=== PATIENT | female | born 1965 | race Caucasian/White ===

== ENCOUNTER → 2018-02-15 | Outpatient (CLI) | payer BC ==
--- NOTE | 2018-02-15 14:05 | XR ---
EXAMINATION TYPE: XR lumbar spine 2 or 3V DATE OF EXAM: 02/15/2018 CLINICAL HISTORY: Chronic back pain TECHNIQUE: Frontal an lateral images of the lumbar spine are obtained. COMPARISON: None. FINDINGS: There is a mild levoscoliotic curvature of the lumbar spine with apex at L3-L4 There are 5 lumbar type vertebral bodies identified. The lumbar spine shows satisfactory alignment without evide nce of acute fracture or dislocation. Vertebral body heights and disk space heights are within normal limits mild degenerative changes at L4-L5 and L5-S1 are seen as intervertebral disc space narrowing and facet arthropathy. The overlying soft tissue appears unremarkable. Cholecystectomy clips are pres ent in the right upper quadrant. IMPRESSION: No acute fracture or malalignment is seen in the lumbar spine. Mild degenerative changes of L4-L5 and L5-S1 and mild levoscoliosis of the lumbar spine.
--- NOTE | 2018-02-15 14:10 | XR ---
EXAMINATION TYPE: XR cervical spine limited DATE OF EXAM: 02/15/2018 TECHNIQUE: Frontal and lateral views of the cervical spine are obtained. HISTORY: [id number] lumbago,muscle strain COMPARISON: None FINDINGS: The cervical spine is visualized in its entirety from C1 thru the top of T1 level, it is s atisfactory in alignment without evidence of acute fracture. There is retrolisthesis of C5 on C6 with intervertebral disc space narrowing and opposing surface sclerosis as well as a small anterior osteo phyte. Mild uncovertebral hypertrophy is also seen at this level. The pre-vertebral soft tissue appea rs within normal limits. The C1-C2 articulation is within normal limits on the open mouth view. The oblique images are within normal limits. There is straightening of the usual cervical lordosis that may be on the basis of muscular sprain, spasm or patient positioning. IMPRESSION: No acute fracture in the cervical spine. Degenerative disc disease is focal at C5-C6 wit h retrolisthesis and uncovertebral hypertrophy. MR could evaluate for neural foraminal narrowing and spinal canal stenosis.
== END | disposition home or self-care (01) ==
LOC: RADXRYALE 10:54
PROVIDERS: ATTEND Family Medicine
DX: M47.816 Spondylosis without myelopathy or radiculopathy, lumbar region (principal); M41.9 Scoliosis, unspecified; M50.322 Other cervical disc degeneration at C5-C6 level; M43.12 Spondylolisthesis, cervical region; M99.71 Connective tissue and disc stenosis of intervertebral foramina of cervical region; M54.41 Lumbago with sciatica, right side; S46.811A Strain of other muscles, fascia and tendons at shoulder and upper arm level, right arm, initial encounter
CPT/HCPCS: 72040; 72100

== ENCOUNTER → 2018-07-19 | Outpatient (CLI) | payer BC ==
--- NOTE | 2018-07-20 11:53 | MM ---
Reason for exam: screening (asymptomatic). Last mammogram was performed 3 years and 4 months ago. Physical Findings: A clinical breast exam by your physician is recommended on an annual basis and results should be correlated with mammographic findings. MG 3D Screening Mammo W/Cad Bilateral CC and MLO view(s) were taken. Prior study comparison: March 24, 2015, bilateral MG 3d screening mammo w/cad. September 22, 2009, bilateral digital screening mammogram. The breast tissue is extremely dense which could obscure a lesion on mammography. No significant changes when compared with prior studies. ASSESSMENT: Benign, BI-RAD 2 RECOMMENDATION: Routine screening mammogram of both breasts in 1 year.
== END | disposition home or self-care (01) ==
LOC: RADMAMWWP 06:51
PROVIDERS: ATTEND Family Medicine
DX: Z12.31 Encounter for screening mammogram for malignant neoplasm of breast (principal)
CPT/HCPCS: 77063; 77067

== ENCOUNTER → 2019-04-05 | Day surgery (SDC) | payer BC ==
[2019-04-04 10:26] VITALS: BMI 26.2
[~2019-04-05] MED LIST: LACTATED RINGERS 1,000 ML IV SCH; LIDOCAINE 1% 20 ML VIAL (10MG/ML) FOR IV START INTRADERMA PRN; LIDOCAINE 1% INJ 10MG/ML (20 ML MDV) ONE; PROPOFOL 10 MG/ML 20 ML VIAL IV ONE
[2019-04-05 08:00] VITALS: RESP 16; TEMP 99.2
--- NOTE | 2019-04-05 09:12 | P.PCN ---
Date of Procedure: 04/05/19 Procedure(s) Performed: BRIEF HISTORY: Patient is a 54-year-old pleasant white female scheduled for an elective colonoscopy as a part of screening for colorectal neoplasia. She has family history of colon cancer diagnosed in maternal grandmother and paternal grandfather in the 50s and 90s respectively. PROCEDURE PERFORMED: Colonoscopy with snare polypectomy. PREOPERATIVE DIAGNOSIS: Screening for colon cancer. IV sedation per Anesthesia. PROCEDURE: After informed consent was obtained, the patient, was brought into the endoscopy unit. IV sedation was administered by Anesthesia under continuous monitoring. Digital rectal examination was normal. Initially the Olympus CF-160 flexible video colonoscope was then inserted in the rectum, gradually advanced into the cecum without any difficulty. Careful examination was performed as the scope was gradually being withdrawn. Ileocecal valve and the appendiceal orifice were visualized and appeared normal. Prep was excellent. Mucosa of the cecum, ascending colon, transverse colon, descending colon, sigmoid colon, and rectum appeared normal. The proximal rectum there was a 4-5 mm sessile polyp that was removed by snare polypectomy. The left sided diverticulosis seen. Retroflexion was performed in the rectum and no lesions were seen. The patient tolerated the procedure well. IMPRESSION: 4-5 mm sessile proximal rectal polyp status post polypectomy Scattered sigmoid diverticulosis RECOMMENDATIONS: Findings of this examination were discussed with the patient as well as her family. She was advised to follow with the biopsy and have a repeat colonoscopy in 5 years is a family history of colon cancer.
[2019-04-05 09:26] VITALS: BP 111/69; PULSE 50
== END ==
LOC: ORWHC2ENDO 07:45
PROVIDERS: ATTEND Internal Medicine Gastroenterology
DX: Z12.11 Encounter for screening for malignant neoplasm of colon (principal); K62.1 Rectal polyp; K57.30 Diverticulosis of large intestine without perforation or abscess without bleeding; Z80.0 Family history of malignant neoplasm of digestive organs; K21.9 Gastro-esophageal reflux disease without esophagitis; F41.9 Anxiety disorder, unspecified; Z72.0 Tobacco use; Z86.79 Personal history of other diseases of the circulatory system
CPT/HCPCS: 81025; 88305; 45385; J2001; J2704

== ENCOUNTER 2019-07-15 11:03 | Emergency (ER) | payer BC ==
[2019-07-15 11:19] VITALS: RESP 18; TEMP 98.1
[2019-07-15] MEDS ORDERED: CYCLOBENZAPRINE 10MG STARTER 3 TAB BTL PO STA (12:12)
[2019-07-15] MEDS ORDERED: CYCLOBENZAPRINE 10 MG TAB PO STA (12:12)
--- NOTE | 2019-07-15 12:20 | CT ---
EXAMINATION TYPE: CT brain grupo [facility] con DATE OF EXAM: 07/15/2019 COMPARISON: None HISTORY: 54-year-old female Head and neck pain CT DLP: 1282.7 mGycm Automated exposure control for dose reduction was used. Technique: Examination of the head was done in axial plane without intravenous contrast. Coronal and sagittal reconstructions performed. CT of the cervical spine was obtained in axial plane without intravenous injection of contrast mater ial. Coronal and sagittal reformatted images were obtained from the axial views for evaluation of f ractures, spinal alignment and canal. FINDINGS: Head: There is no evidence of acute intracranial hemorrhage, acute ischemic changes, mass, mass-effect, or extra-axial fluid collection. There is no effacement of cerebral sulci or basal subarachnoid cister ns. There is no hydrocephalus. There is no midline shift. Delgado-white matter distinction is preserv ed. Slight leftward nasal septal deviation. Paranasal sinuses and mastoid air cells well pneumatized. Orb its and globes are intact. Cervical spine: 4 mm subpleural pulmonary nodule peripheral right upper lobe. Mild emphysematous change. 6 month foll ow-up CT recommended to reassess this and certainly the remainder of the lungs. No craniocervical junction abnormality, predental space widening, or prevertebral soft tissue swellin g. Reversal of the normal cervical lordosis. No acute fracture of the cervical spine. There is grade 1 retrolisthesis at C5-C6 with moderate to advanced disc/endplate degenerative change at this level with disc height loss, endplate sclerosis, disc osteophyte complex that may cause up to a moderate spinal canal stenosis. Along with facet and uncovertebral joint arthropathy, there is moderate bilateral neuroforaminal sten osis, right greater left, at this level. Sagittal and coronal reformatted images confirm above findings. COMBINED IMPRESSION: 1. No acute intracranial abnormality seen. 2. No acute fracture of the cervical spine. Focal moderate to advanced spondylotic change at C5-C6 wi th grade 1 retrolisthesis here, at least moderate spinal canal stenosis, and moderate bilateral neuro foraminal stenosis here. 3. A 4 mm subpleural pulmonary nodule right upper lobe and some emphysematous change in the visualize d upper lungs. Six-month follow-up contrast enhanced CT chest recommended to reassess this and survey the remainder of the lungs.
--- NOTE | 2019-07-15 12:44 | ED ---
General Adult HPI - General Chief complaint: Head Injury Stated complaint: head/neck pain Time Seen by Provider: 07/15/19 11:25 Source: patient, RN notes reviewed, old records reviewed Mode of arrival: ambulatory - History of Present Illness Initial comments: 55-year-old female patient presents in for evaluation of injury to head. Patient reports that she was driving a riding lawnmower yesterday approximately 5 PM. She states that she is looking down to avoid hitting rocks when something hit him on the top of the head. She reports is made have been a tree branch. Patient reports she did not have any loss of consciousness, she did feel dazed. She does not know what was that hit her. Patient states that since she has been having pain in her head as well as her neck. She reports that at the apex of her skull and then at the top of her neck on the right side. Denies any use of blood thinners. Reports she's had a mild generalized headache since. Denies any other complaints. Systemic: Pt denies fatigue, fever/chills, rash. Pt denies weakness, night sweats, weight loss. Neuro: Pt denies visual disturbances, syncope or pre-syncope. HEENT: Pt denies ocular discharge or irritation, otalgia, rhinorrhea, pharyngitis or notable lymphadenopathy. Cardiopulmonary: Pt denies chest pain, SOB, heart palpitations, dyspnea on exertion. Abdominal/GI: Pt denies abdominal pain, n/v/d. : Pt denies dysuria, burning w/ urination, frequency/urgency. Denies new onset urinary or bowel incontinence. MSK: Pt denies myalgia, loss of strength or function in extremities. Neuro: Pt denies new onset weakness, paresthesias. - Related Data Home Medications Medication Instructions Recorded Confirmed ALPRAZolam [Xanax] 0.25 mg PO DAILY PRN 04/04/19 04/05/19 Omeprazole 20 mg PO DAILY 04/04/19 04/05/19 Allergies Allergy/AdvReac Type Severity Reaction Status Date / Time No Known Allergies Allergy Verified 07/15/19 11:19 Review of Systems ROS Statement: Those systems with pertinent positive or pertinent negative responses have been documented in the HPI. ROS Other: All systems not noted in ROS Statement are negative. Past Medical History Past Medical History: Atrial Flutter, GERD/Reflux History of Any Multi-Drug Resistant Organisms: None Reported Past Surgical History: Back Surgery, Cardiac Ablation, Cholecystectomy Past Anesthesia/Blood Transfusion Reactions: Previous Problems w/ Anesthesia Additional Past Anesthesia/Blood Transfusion Reaction / Comment(s): states was "hard to wake up after cholesystectomy and had a possible seizure" Past Psychological History: Anxiety Smoking Status: Former smoker Past Alcohol Use History: None Reported Past Drug Use History: None Reported - Past Family History Father Family Medical History: Cancer Additional Family Medical History / Comment(s): malignant melanoma General Exam - General Exam Comments Initial Comments: Constitutional: NAD, AOX3, Pt has pleasant affect. HEENT: NC/AT, trachea midline, neck supple, no lymphadenopathy. Posterior pharynx non erythematous, without exudates. External ears appear normal, without discharge. Mucous membranes moist. Eyes PERRLA, EOM intact. There is no scleral icterus. No pallor noted. Cardiopulmonary: RRR, no murmurs, rubs or gallops, no JVD noted. Lungs CTAB in anterior and posterior [place]. No peripheral edema. Abdominal exam: Abdomen soft and non-distended. Abdomen non-tender to palpation in all 4 quadrants. Bowel sounds active in LLQ. No hepatosplenomegaly. No ecchymosis Neuro: CN II-XII intact. No nuchal rigidity. No raccon eyes, no blair sign, no hemotympanum. No midline cervical spinal tenderness, mild amount of paracervical tenderness to the right side of C1 region. MSK: No posterior calf tenderness bilaterally, homans sign negative bilaterally. Posterior tibialis and radial pulse +2 bilaterally. Sensation intact in upper and lower extremities. Full active ROM in upper and lower extremities, 5/5 stregnth. Course Vital Signs 07/15/19 11:16 Temperature 98.1 F Pulse Rate 62 Respiratory 18 Rate Blood Pressure 129/73 O2 Sat by Pulse 99 Oximetry Medical Decision Making - Medical Decision Making 55-year-old female patient presents in for evaluation of injury to head. Patient reports that she was driving a riding lawnmower yesterday approximately 5 PM. She states that she is looking down to avoid hitting rocks when something hit him on the top of the head. She reports is made have been a tree branch. Patient reports she did not have any loss of consciousness, she did feel dazed. She does not know what was that hit her. Patient states that since she has been having pain in her head as well as her neck. She reports that at the apex of her skull and then at the top of her neck on the right side. Denies any use of blood thinners. Reports she's had a mild generalized headache since. Denies any other complaints. Patient vital signs are stable, afebrile. Physical exam displayed: CN II-XII intact. No nuchal rigidity. No raccon eyes, no blair sign, no hemotympanum. No midline cervical spinal tenderness, mild amount of paracervical tenderness to the right side of C1 region. CT brain and C-spine displayed no acute intracranial abnormality. Patient has full active range of motion and active strength in upper or lower extremities. No acute fracture of the cervical spine. Full moderate to advanced spondylitic change at C5-C6 with a grade 1 retrolisthesis at least moderate spinal canal stenosis, and moderate bilateral neural foraminalis. 4 mm subpleural pulmonary nodule right upper lobe with some emphysematous change in the visualized upper lung. Patient declined any pain medication. Pt will be discharged, will follow up with PCP as well as orthopedic consult. Will return to ED if condition worsens. Case discussed with Dr. David. Disposition Clinical Impression: Neck sprain, Pulmonary nodule Disposition: HOME SELF-CARE Condition: Stable Instructions (If sedation given, give patient instructions): Acute Headache (ED), Cervical Strain (ED) Additional Instructions: Follow-up with primary care provider tomorrow. May use Tylenol and Motrin as needed for discomfort. Initially follow up with primary care provider. If symptoms persist follow up with orthopedic consult. If symptoms worsen return to emergency department. Have repeat CT of the chest in 6 months to evaluate pulmonary nodule. Is patient prescribed a controlled substance at d/c from ED?: No Referrals: Jerman Escobar MD [Primary Care Provider] - 1-2 days Baldomero Pack DO [Medical Doctor] - 1-2 days
[2019-07-15 13:13] VITALS: BP 125/75; PULSE 55
== END 2019-07-15 13:12 | disposition home or self-care (01) ==
LOC: EC 11:03
DX: S13.9XXA Sprain of joints and ligaments of unspecified parts of neck, initial encounter (principal); J43.9 Emphysema, unspecified; M48.02 Spinal stenosis, cervical region; M43.12 Spondylolisthesis, cervical region; M47.812 Spondylosis without myelopathy or radiculopathy, cervical region; K21.9 Gastro-esophageal reflux disease without esophagitis; R51 Headache; R91.1 Solitary pulmonary nodule; Z79.899 Other long term (current) drug therapy; Z87.891 Personal history of nicotine dependence; W22.8XXA Striking against or struck by other objects, initial encounter; Y93.89 Activity, other specified
CPT/HCPCS: 99284; 72125; 70450; L0120

== ENCOUNTER 2020-11-28 18:47 | Emergency (ER) | payer OTHER ==
[2020-11-28 18:51] VITALS: RESP 18
--- NOTE | 2020-11-28 19:34 | ED ---
Abdominal Pain HPI - General Chief Complaint: Abdominal Pain Stated Complaint: abd pain Time Seen by Provider: 11/28/20 18:55 Source: patient Mode of arrival: ambulatory Limitations: no limitations - History of Present Illness Initial Comments: 55 year-old female patient presents to the emergency department for evaluation of right lower quadrant abdominal pain. Patient states pain is sharp and stabbing, waxes and wanes. States she has not had an appetite today. States she was feeling unwell this morning like she might have had a fever this morning. D enies any diarrhea or constipation. States that symptoms started two days ago. She has been taking motrin today. Denies any hematuria, dysuria, urinary urgency, or urinary frequency. Has had cholecystectomy in the past. No other abdominal surgeries. Patient denies any recent rash, cough, shortness of breath, chest pain, back pain, numbness, tingling, dizziness, weakness, headache, visual changes, or any other complaints. - Related Data Home Medications Medication Instructions Recorded Confirmed ALPRAZolam [Xanax] 0.25 mg PO DAILY PRN 04/04/19 11/28/20 Ferrous Sulfate [Feosol] 325 mg PO DAILY 11/28/20 11/28/20 Ibuprofen [Motrin] 600 mg PO BID 11/28/20 11/28/20 Multivitamins, Thera [Multivitamin 1 tab PO DAILY 11/28/20 11/28/20 (formulary)] Previous Rx's Medication Instructions Recorded Cephalexin [Keflex] 500 mg PO BID #10 cap 11/28/20 Fluconazole [Diflucan] 150 mg PO ONCE #2 tab 11/28/20 Allergies Allergy/AdvReac Type Severity Reaction Status Date / Time No Known Allergies Allergy Verified 11/28/20 19:52 Review of Systems ROS Statement: Those systems with pertinent positive or pertinent negative responses have been documented in the HPI. ROS Other: All systems not noted in ROS Statement are negative. Past Medical History Past Medical History: Atrial Flutter, GERD/Reflux History of Any Multi-Drug Resistant Organisms: None Reported Past Surgical History: Back Surgery, Cardiac Ablation, Cholecystectomy Past Anesthesia/Blood Transfusion Reactions: Previous Problems w/ Anesthesia Additional Past Anesthesia/Blood Transfusion Reaction / Comment(s): states was "hard to wake up after cholesystectomy and had a possible seizure" Past Psychological History: Anxiety Smoking Status: Never smoker Past Alcohol Use History: None Reported Past Drug Use History: None Reported - Past Family History Father Family Medical History: Cancer Additional Family Medical History / Comment(s): malignant melanoma General Exam Limitations: no limitations General appearance: alert, in no apparent distress, other (This is a well- developed, well-nourished adult female patient in no acute distress. Vital signs upon presentation are temperature 98.1F, pulse 75, respirations 18, blood pressure 133/83, pulse ox 99% on room air.) ENT exam: Present: normal exam, normal oropharynx, mucous membranes moist Respiratory exam: Present: normal lung sounds bilaterally. Absent: respiratory distress, wheezes, rales, rhonchi, stridor Cardiovascular Exam: Present: regular rate, normal rhythm, normal heart sounds. Absent: systolic murmur, diastolic murmur, rubs, gallop, clicks GI/Abdominal exam: Present: soft, tenderness (Right lower quadrant), normal bowel sounds. Absent: distended, guarding, rebound, rigid Neurological exam: Present: alert, oriented X3, CN II-XII intact Psychiatric exam: Present: normal affect, normal mood Skin exam: Present: warm, dry, intact, normal color. Absent: rash Course Vital Signs 11/28/20 11/28/20 18:48 20:16 Temperature 98.1 F Pulse Rate 75 64 Respiratory 18 18 Rate Blood Pressure 133/83 114/62 O2 Sat by Pulse 99 98 Oximetry Medical Decision Making - Medical Decision Making 55 year-old female patient presents to the emergency department for evaluation of right lower quadrant pain that started two days ago. Physical exam shows mild right lower quadrant tenderness. Labs reviewed and showed normal wbc. Low potassium, replaced orally. Urinalysis did show presence fo red blood cells, she is currently on her period. CT abdomen and pelvis showed evidence of bladder wall thickening. No other abnormalities to account for patient's pain. Given short course of Keflex for possible cystitis. She'll be discharged follow up with her primary care physician for recheck in 1-2 days. She is instructed to follow-up with urology for further evaluation of her bladder wall thickening. Return parameters discussed in detail. She verbalizes understanding and agrees with this plan. Case discussed with my attending Dr. Sequeira. - Lab Data Result diagrams: 11/28/20 19:21 09/11/21 19:21 Lab Results 11/28/20 11/28/20 11/28/20 Range/Units 19:21 19:21 19:21 WBC 8.5 (3.8-10.6) k/uL RBC 4.16 (3.80-5.40) m/uL Hgb 14.0 (11.4-16.0) gm/dL Hct 40.1 (34.0-46.0) % MCV 96.3 (80.0-100.0) fL MCH 33.5 (25.0-35.0) pg MCHC 34.8 (31.0-37.0) g/dL RDW 12.6 (11.5-15.5) % Plt Count 216 (150-450) k/uL MPV 8.2 Neutrophils % 47 % Lymphocytes % 43 % Monocytes % 5 % Eosinophils % 2 % Basophils % 0 % Neutrophils # 4.0 (1.3-7.7) k/uL Lymphocytes # 3.7 (1.0-4.8) k/uL Monocytes # 0.4 (0-1.0) k/uL Eosinophils # 0.2 (0-0.7) k/uL Basophils # 0.0 (0-0.2) k/uL Sodium 137 (137-145) mmol/L Potassium 3.4 L (3.5-5.1) mmol/L Chloride 106 (98-107) mmol/L Carbon Dioxide 26 (22-30) mmol/L Anion Gap 5 mmol/L BUN 17 (7-17) mg/dL Creatinine 0.73 (0.52-1.04) mg/dL Est GFR (CKD-EPI)AfAm >90 (>60 ml/min/1.73 sqM) Est GFR (CKD-EPI)NonAf >90 (>60 ml/min/1.73 sqM) Glucose 128 H (74-99) mg/dL Plasma Lactic Acid Erick (0.7-2.0) mmol/L Calcium 9.6 (8.4-10.2) mg/dL Total Bilirubin 0.5 (0.2-1.3) mg/dL AST 27 (14-36) U/L ALT 24 (4-34) U/L Alkaline Phosphatase 66 (38-126) U/L Total Protein 6.2 L (6.3-8.2) g/dL Albumin 4.1 (3.5-5.0) g/dL Lipase 116 (23-300) U/L Urine Color Light Yellow Urine Appearance Clear (Clear) Urine pH 5.5 (5.0-8.0) Ur Specific [place] 1.009 (1.001-1.035) Urine Protein Negative (Negative) Urine Glucose (UA) Negative (Negative) Urine Ketones Trace H (Negative) Urine Blood Large H (Negative) Urine Nitrite Negative (Negative) Urine Bilirubin Negative (Negative) Urine Urobilinogen <2.0 (<2.0) mg/dL Ur Leukocyte Esterase Negative (Negative) Urine RBC 75 H (0-5) /hpf Urine WBC 2 (0-5) /hpf Ur Squamous Epith Cells <1 (0-4) /hpf Urine Bacteria Rare H (None) /hpf Hyaline Casts 1 (0-2) /lpf Urine Mucus Rare H (None) /hpf 11/28/20 Range/Units 19:21 WBC (3.8-10.6) k/uL RBC (3.80-5.40) m/uL Hgb (11.4-16.0) gm/dL Hct (34.0-46.0) % MCV (80.0-100.0) fL MCH (25.0-35.0) pg MCHC (31.0-37.0) g/dL RDW (11.5-15.5) % Plt Count (150-450) k/uL MPV Neutrophils % % Lymphocytes % % Monocytes % % Eosinophils % % Basophils % % Neutrophils # (1.3-7.7) k/uL Lymphocytes # (1.0-4.8) k/uL Monocytes # (0-1.0) k/uL Eosinophils # (0-0.7) k/uL Basophils # (0-0.2) k/uL Sodium (137-145) mmol/L Potassium (3.5-5.1) mmol/L Chloride (98-107) mmol/L Carbon Dioxide (22-30) mmol/L Anion Gap mmol/L BUN (7-17) mg/dL Creatinine (0.52-1.04) mg/dL Est GFR (CKD-EPI)AfAm (>60 ml/min/1.73 sqM) Est GFR (CKD-EPI)NonAf (>60 ml/min/1.73 sqM) Glucose (74-99) mg/dL Plasma Lactic Acid Erick 0.9 (0.7-2.0) mmol/L Calcium (8.4-10.2) mg/dL Total Bilirubin (0.2-1.3) mg/dL AST (14-36) U/L ALT (4-34) U/L Alkaline Phosphatase (38-126) U/L Total Protein (6.3-8.2) g/dL Albumin (3.5-5.0) g/dL Lipase (23-300) U/L Urine Color Urine Appearance (Clear) Urine pH (5.0-8.0) Ur Specific [place] (1.001-1.035) Urine Protein (Negative) Urine Glucose (UA) (Negative) Urine Ketones (Negative) Urine Blood (Negative) Urine Nitrite (Negative) Urine Bilirubin (Negative) Urine Urobilinogen (<2.0) mg/dL Ur Leukocyte Esterase (Negative) Urine RBC (0-5) /hpf Urine WBC (0-5) /hpf Ur Squamous Epith Cells (0-4) /hpf Urine Bacteria (None) /hpf Hyaline Casts (0-2) /lpf Urine Mucus (None) /hpf - Radiology Data Radiology results: report reviewed, image reviewed CT abdomen and pelvis with contrast was obtained. Report was reviewed in its entirety. Impression by Dr. Gomez shows borderline urinary bladder wall thickening. Correlate with urinalysis for cystitis. Appendix was not definitively visualized however there is no definite CT evidence of acute appendicitis. Colonic diverticulosis without diverticulitis. No evidence of bowel obstruction. Disposition Clinical Impression: Abdominal pain, Bladder wall thickening Disposition: HOME SELF-CARE Condition: Good Instructions (If sedation given, give patient instructions): Abdominal Pain (ED) Additional Instructions: Complete antibiotic prescription in full. Follow up with urology for further evaluation of bladder wall thickening. Follow-up with your primary care physician for recheck in 1-2 days. Return for any new, worsening, or concerning symptoms. Prescriptions: Fluconazole [Diflucan] 150 mg PO ONCE #2 tab Cephalexin [Keflex] 500 mg PO BID #10 cap Is patient prescribed a controlled substance at d/c from ED?: No Referrals: Jerman Escobar MD [Primary Care Provider] - 1-2 days Kurt Dickinson MD [STAFF PHYSICIAN] - 1-2 days Time of Disposition: 20:23
[2020-11-28 19:35] LABS: Basophils % (A) 0 %; Eosinophils # (A) 0.2 k/uL (0-0.7); Eosinophils % (A) 2 %; HCT 40.1 % (34.0-46.0); Lymphocytes # (A) 3.7 k/uL (1.0-4.8); Lymphocytes % (A) 43 %; MCH 33.5 pg (25.0-35.0); MCHC 34.8 g/dL (31.0-37.0); MCV 96.3 fL (80.0-100.0); Mean Platelet Volume 8.2; Monocytes # (A) 0.4 k/uL (0-1.0); Monocytes % (A) 5 %; Neutrophils % (A) 47 %; Platelet Count 216 k/uL (150-450); RBC 4.16 m/uL (3.80-5.40); RDW 12.6 % (11.5-15.5); WBC 8.5 k/uL (3.8-10.6)
[2020-11-28 19:45] LABS: ALT 24 U/L (4-34); AST 27 U/L (14-36); African American GFR (CKD) >90 (>60 ml/min/1.73 sqM); Albumin 4.1 g/dL (3.5-5.0); Alkaline Phosphatase 66 U/L (38-126); Anion Gap 5 mmol/L; Blood Urea Nitrogen 17 mg/dL (7-17); Calcium 9.6 mg/dL (8.4-10.2); Carbon Dioxide 26 mmol/L (22-30); Chloride 106 mmol/L (98-107); Glucose 128 mg/dL (74-99); Lipase 116 U/L (23-300); Non-African American GFR(CKD) >90 (>60 ml/min/1.73 sqM); Potassium 3.4 mmol/L (3.5-5.1); Sodium 137 mmol/L (137-145); Total Bilirubin 0.5 mg/dL (0.2-1.3); Total Protein 6.2 g/dL (6.3-8.2)
--- NOTE | 2020-11-28 19:55 | CT ---
EXAMINATION TYPE: CT abdomen pelvis w con DATE OF EXAM: 11/28/2020 COMPARISON: None available HISTORY: RLQ pain CT DLP: 832.5 mGycm. Automated Exposure Control for Dose Reduction was Utilized. TECHNIQUE: Multiple contiguous axial CT images of the abdomen and pelvis were obtained from the lung bases through the pubic symphysis with IV Contrast, patient injected with 100 mL of Isovue 300. 2-D s agittal and coronal reformatted images were obtained. FINDINGS: Lung bases are clear. Liver, spleen, pancreas, and bilateral adrenal glands have an unremarkable enhanced appearance. Gallbladder is absent. No definite intrahepatic or extrahepatic biliary ductal dilatation. Kidneys are symmetric in size without hydronephrosis. No renal or ureteral calculi. Urinary bladder d emonstrates borderline urinary bladder wall thickening. Uterus is present. No adnexal masses. No free fluid. Visualized bowel is of normal caliber without evidence of obstruction. No significant mesenteric infl ammation. Distal colonic diverticulosis without adjacent inflammatory changes. Appendix appears unrem arkable. No free air. Abdominal aorta is of normal caliber. No intra-abdominal or retroperitoneal lymphadenopathy. Subcutan eous soft tissues appear unremarkable. Osseous structures appear intact. Moderate degenerative change s of the lower lumbar spine. IMPRESSION: 1. Borderline urinary bladder wall thickening. Correlate with urinalysis for cystitis. 2. Appendix is not definitively visualized. However there is no definite CT evidence of acute appendi citis. 3. Colonic diverticulosis without diverticulitis. 4. No evidence of bowel obstruction.
[2020-11-28 19:58] LABS: Appearance,Urine Clear (Clear); Bacteria,Urine Rare /hpf; Bilirubin,Urine Negative (Negative); Blood,Urine Large (Negative); Color,Urine Light Yellow; Glucose,Urine (UA) Negative (Negative); Hyaline Casts,Urine 1 /lpf (0-2); Ketones,Urine Trace (Negative); Leukocyte Esterase,Urine Negative (Negative); Mucus,Urine Rare /hpf; Nitrite,Urine Negative (Negative); PH, Urine 5.5 (5.0-8.0); Protein,Urine Negative (Negative); RBC,Urine 75 /hpf (0-5); Specific Gravity,Urine 1.009 (1.001-1.035); Squamous Epithelial Cell,Urine <1 /hpf (0-4); Urobilinogen,Urine <2.0 mg/dL (<2.0); WBC,Urine 2 /hpf (0-5)
[2020-11-28] MEDS ORDERED: POTASSIUM CHLORIDE ER 20 MEQ TAB.ER PO STA (20:10)
[2020-11-28 20:18] VITALS: BP 114/62; PULSE 64
[2020-11-28] MEDS ORDERED: CEPHALEXIN 500MG STARTER PACK 4 CAP BTL PO STA (20:22)
[2020-11-28 20:36] VITALS: TEMP 97.5
== END 2020-11-28 20:35 | disposition home or self-care (01) ==
LOC: EC 18:47
DX: N32.89 Other specified disorders of bladder (principal); I48.92 Unspecified atrial flutter; K21.9 Gastro-esophageal reflux disease without esophagitis; F41.9 Anxiety disorder, unspecified; Z79.1 Long term (current) use of non-steroidal anti-inflammatories (NSAID); Z79.899 Other long term (current) drug therapy; Z90.49 Acquired absence of other specified parts of digestive tract
CPT/HCPCS: 36415; 80053; 83605; 83690; 85025; 81001; 74177; 99284; Q9967

== ENCOUNTER → 2021-04-22 | Outpatient (CLI) | payer OTHER ==
--- NOTE | 2021-04-26 09:10 | MM ---
Reason for exam: screening (asymptomatic). Last mammogram was performed 2 years and 9 months ago. Physical Findings: A clinical breast exam by your physician is recommended on an annual basis and results should be correlated with mammographic findings. MG 3D Screening Mammo W/Cad Bilateral CC and MLO view(s) were taken. Prior study comparison: July 19, 2018, bilateral MG 3d screening mammo w/cad. March 24, 2015, bilateral MG 3d screening mammo w/cad. The breast tissue is heterogeneously dense. This may lower the sensitivity of mammography. Scattered round and punctate dermal calcifications. No significant changes when compared with prior studies. ASSESSMENT: Benign, BI-RAD 2 RECOMMENDATION: Routine screening mammogram of both breasts in 1 year.
== END | disposition home or self-care (01) ==
LOC: RADMAMWWP 07:16
PROVIDERS: ATTEND Family Medicine
DX: Z12.31 Encounter for screening mammogram for malignant neoplasm of breast (principal)
CPT/HCPCS: 77063; 77067

== ENCOUNTER 2021-11-05 18:44 | Emergency (ER) | payer BC, OTHER ==
[2021-11-05 19:15] VITALS: BP 140/74; PULSE 69; RESP 16; TEMP 97.8
[2021-11-05] MEDS ORDERED: KETOROLAC 15 MG/ML 1 ML VIAL IM STA (20:25)
--- NOTE | 2021-11-05 20:46 | CT ---
EXAMINATION TYPE: CT brain johnathanine wo con DATE OF EXAM: 11/05/2021 COMPARISON: 07/15/2019 HISTORY: thrown out of sun chair into wall and landed on top of head, head & neck pain CT DLP: 1274.9 mGycm Automated exposure control for dose reduction was used. Ventricles and sulci appear normal. There is no mass effect or midline shift. No sign of intracranial hemorrhage. The calvarium is intact. The cervical vertebrae show some straightening. There is moderate narrowing at C5-6 disc space with s purring of the endplates. Posterior elements are intact. Facet joints are intact. No compression frac ture. IMPRESSION: Negative CT scan of the brain. New Moderate spondylosis at C5-6 similar to old exam. No fracture seen. No acute abnormality of the cervi lexx spine.
--- NOTE | 2021-11-05 20:51 | XR ---
EXAMINATION TYPE: XR ribs RT w pa chest xray DATE OF EXAM: 11/05/2021 COMPARISON: None HISTORY: Right-sided rib pain TECHNIQUE: 5 views FINDINGS: Heart and mediastinum are normal. There is a 10 mm nodule in the left midlung field that is quite dense and likely granuloma. The lungs are clear of infiltrate. No pleural effusion. No evidenc e of pneumothorax. The right ribs appear intact. There are clips from cholecystectomy. IMPRESSION: Granuloma in the left upper lobe. No active cardiopulmonary disease. No rib fracture seen .
--- NOTE | 2021-11-05 20:54 | XR ---
EXAMINATION TYPE: XR thoracic spine 2V DATE OF EXAM: 11/05/2021 COMPARISON: NONE HISTORY: Fall. Pain TECHNIQUE: 3 views FINDINGS: The thoracic vertebra have normal spacing and alignment. Posterior elements are intact. The re is no paraspinal mass. No compression fracture. IMPRESSION: Negative thoracic spine exam. No fracture.
--- NOTE | 2021-11-05 20:56 | XR ---
EXAMINATION TYPE: XR lumbosacral spine min 4V DATE OF EXAM: 11/05/2021 COMPARISON: 02/15/2018 HISTORY: Pain. Fall TECHNIQUE: 5 view FINDINGS: The lumbar vertebrae have normal alignment. There is degenerative disc space narrowing and vacuum disc at L4-5 and L5-S1. No compression fracture. Sacroiliac joints are intact. IMPRESSION: There is degenerative disc changes at L4-5 and L5-S1. No fracture seen.. No significant c hange.
[2021-11-05] MEDS ORDERED: LIDOCAINE 5% PATCH TOPICAL SCH (21:15)
--- NOTE | 2021-11-05 21:17 | ED ---
General Adult HPI - General Chief complaint: Neck Pain/Injury Stated complaint: Back & Side Injury-Fall Time Seen by Provider: 11/05/21 20:12 Source: patient Mode of arrival: ambulatory Limitations: no limitations - History of Present Illness Initial comments: Patient is a 56-year-old female who presents to the emergency department with a chief complaint of neck pain. Patient states she was laying on a sunbathing chair when she went to adjust the height of the head rest behind her in a chair flipped over causing her to fall on the deck. Patient landed on her head, neck, and back. The chair landed on her right ribs. Denies blood thinner use. Denies headache and visual symptoms. Patient endorses pain in the back of her neck, throughout her entire back, and over her right ribs. Patient states the pain is tolerable but she wants to make sure that she did not break anything. She denies weakness of the lower extremities. Denies numbness and tingling in the groin And buttock region. Denies loss of bowel or bladder function. - Related Data Home Medications Medication Instructions Recorded Confirmed ALPRAZolam [Xanax] 0.25 mg PO DAILY PRN 04/04/19 11/28/20 Ferrous Sulfate [Feosol] 325 mg PO DAILY 11/28/20 11/28/20 Ibuprofen [Motrin] 600 mg PO BID 11/28/20 11/28/20 Multivitamins, Thera [Multivitamin 1 tab PO DAILY 11/28/20 11/28/20 (formulary)] Previous Rx's Medication Instructions Recorded Cephalexin [Keflex] 500 mg PO BID #10 cap 11/28/20 Fluconazole [Diflucan] 150 mg PO ONCE #2 tab 11/28/20 Cyclobenzaprine [Flexeril] 10 mg PO HS PRN #14 tab 11/05/21 Ibuprofen [Motrin] 800 mg PO Q6HR PRN #30 tab 11/05/21 Lidocaine 5% Patch [Lidoderm 5% 1 patch TOPICAL DAILY #7 patch 11/05/21 Patch] Allergies Allergy/AdvReac Type Severity Reaction Status Date / Time No Known Allergies Allergy Verified 11/05/21 19:12 Review of Systems ROS Statement: Those systems with pertinent positive or pertinent negative responses have been documented in the HPI. ROS Other: All systems not noted in ROS Statement are negative. Past Medical History Past Medical History: Atrial Flutter, GERD/Reflux History of Any Multi-Drug Resistant Organisms: None Reported Past Surgical History: Back Surgery, Cardiac Ablation, Cholecystectomy Past Anesthesia/Blood Transfusion Reactions: Previous Problems w/ Anesthesia Additional Past Anesthesia/Blood Transfusion Reaction / Comment(s): states was "hard to wake up after cholesystectomy and had a possible seizure" Past Psychological History: Anxiety Smoking Status: Never smoker Past Alcohol Use History: None Reported Past Drug Use History: None Reported - Past Family History Father Family Medical History: Cancer Additional Family Medical History / Comment(s): malignant melanoma General Exam Limitations: no limitations General appearance: alert, in no apparent distress Head exam: Present: atraumatic, normocephalic, normal inspection Eye exam: Present: normal appearance, PERRL, EOMI. Absent: scleral icterus, conjunctival injection, periorbital swelling Neck exam: Present: normal inspection, tenderness (left trapezius muscle ), full ROM. Absent: meningismus, lymphadenopathy Respiratory exam: Present: normal lung sounds bilaterally, other (no rib tenderness ). Absent: respiratory distress, wheezes, rales, rhonchi, stridor, chest wall tenderness Cardiovascular Exam: Present: regular rate, normal rhythm, normal heart sounds. Absent: systolic murmur, diastolic murmur, rubs, gallop, clicks Back exam: Present: normal inspection, full ROM, tenderness (Right thoracic and lumbar paravertebral tenderness) Neurological exam: Present: alert, oriented X3, CN II-XII intact Psychiatric exam: Present: normal affect, normal mood Course Vital Signs 11/05/21 19:12 Temperature 97.8 F Pulse Rate 69 Respiratory 16 Rate Blood Pressure 140/74 O2 Sat by Pulse 99 Oximetry Medical Decision Making - Medical Decision Making This is a 56-year-old female who presents for evaluation after fall off a chair. Thorough history and examination were performed. Patient is well-appearing and in no apparent distress. There is moderate tenderness over the left trapezius muscle. Full range of motion. There is mild tenderness with palpation of the right thoracic and lumbar paravertebral tenderness. There is no thoracic and lumbar spine tenderness. No red flag symptoms. Pain controlled. Imaging obtained. CT of the brain and C-spine without contrast is negative for acute process. Chest x-ray is negative for rib fracture however does show a nodule resembling granuloma in the left upper lobe expiratory 10 mm. Thoracic and lumbar x-rays are negative for acute process. Results discussed with patient. This is musculoskeletal neck and back pain. Patient will be discharged with symptomatic management. We also discussed incidental finding on chest x-ray. She is instructed to follow-up with her [facility] care provider for further evaluation of possible granuloma. She verbalizes understanding and is agreeable to this plan. Dr. Capps is my attending. Disposition Clinical Impression: Musculoskeletal back pain, Neck pain, Fall Disposition: HOME SELF-CARE Condition: Good Instructions (If sedation given, give patient instructions): Back Pain (ED), Lower Back Exercises (ED), Acute Neck Pain (ED) Additional Instructions: Please take medication as directed. Next dose of Motrin will be at 3 AM. Do not drink alcohol or operate machinery while taking Flexeril as it can make you sleepy. Follow-up with primary care provider regarding granuloma. Return to the emergency department if you experience new, concerning, or worsening symptoms. Prescriptions: Cyclobenzaprine [Flexeril] 10 mg PO HS PRN #14 tab PRN Reason: Muscle Spasm Lidocaine 5% Patch [Lidoderm 5% Patch] 1 patch TOPICAL DAILY #7 patch Ibuprofen [Motrin] 800 mg PO Q6HR PRN #30 tab PRN Reason: Pain Is patient prescribed a controlled substance at d/c from ED?: No Referrals: Jerman Escobar MD [Primary Care Provider] - 1-2 days Time of Disposition: 21:17
[2021-11-05] MEDS ORDERED: CYCLOBENZAPRINE 10 MG TAB PO STA (21:21)
== END 2021-11-05 21:39 | disposition home or self-care (01) ==
LOC: EC 18:44
DX: M54.2 Cervicalgia (principal); M54.50 Low back pain, unspecified; W19.XXXA Unspecified fall, initial encounter
CPT/HCPCS: 71101; 72070; 72110; 72125; 70450; 99284; 96372; J1885